=== PATIENT | male | born 1990 | race African-American/Black ===

== ENCOUNTER 2016-08-22 12:21 | Outpatient (CLI) ==
[2016-03-18 22:32] VITALS: BMI 36.6
[2016-08-22 12:52] LABS: FLU INTERNAL QC INTERNAL QC VALID; RAPID FLU A NEGATIVE (NEGATIVE); RAPID FLU B NEGATIVE (NEGATIVE)
== END 2016-08-22 12:22 | disposition home or self-care (01) ==
LOC: LAB 12:21
PROVIDERS: ATTEND Nurse Practitioner Family
DX: J02.9 Acute pharyngitis, unspecified (principal); R52 Pain, unspecified; R13.10 Dysphagia, unspecified
CPT/HCPCS: 87651; 87804; 87880

== ENCOUNTER 2016-09-14 22:56 | Emergency (ER) ==
[2016-09-14 23:02] VITALS: TEMP 97.5; BMI 35.9
[2016-09-14] MEDS ORDERED: DECADRON 4 MG/ML SDV IM STA (23:18)
--- NOTE | 2016-09-14 23:22 | ED.PDOC ---
General ED Provider: Dr. SULTANA HILTON Chief Complaint: Allergic Reaction Stated Complaint: Itching all over the body, rash. Time Seen by Physician: 23:19 Mode of Arrival: Walk-In Information Source: Patient Primary Care Provider: MECHELLE BALL Nursing and Triage Documentation Reviewed and Agree: Yes Skin Complaint Exam - Skin Rash/Itching Complaint/Exam Symptoms Are: Still present Initial Severity: Mild Current Severity: Mild Potential Exposures: Reports: Unknown Aggravating: Reports: None Alleviating: Reports: None Associated Signs and Symptoms: Denies: Difficulty breathing, Fever, Chills Skin Findings: Present: Urticaria Differential Diagnoses: Allergic Reaction, Contact Dermatitis Review of Systems - Review Of Systems Constitutional: Reports: No symptoms Eyes: Reports: No symptoms Ears, Nose, Mouth, Throat: Reports: No symptoms Respiratory: Reports: No symptoms Cardiac: Reports: No symptoms GI: Reports: No symptoms : Reports: No symptoms Musculoskeletal: Reports: No symptoms Skin: Reports: No symptoms Neurological: Reports: No symptoms Endocrine: Reports: No symptoms Hematologic/Lymphatic: Reports: No symptoms All Other Systems: Reviewed and Negative Past Medical History - Past Medical History Previously Healthy: Yes Endocrine: Reports: None Cardiovascular: Reports: None Respiratory: Reports: None Hematological: Reports: None Gastrointestinal: Reports: None Genitourinary: Reports: None Neuro/Psych: Reports: Other (Headaches ) Musculoskeletal: Reports: Back Pain (siatic in the past ) Cancer: Reports: None - Surgical History General Surgical History: Reports: Unknown - Family History Family History: Reports: Unknown - Social History Smoking Status: Current every day smoker, Light tobacco smoker Smoking Cessation Counseling Time: > 3 min - 10 min Hx Substance Use: No Alcohol Screening: Occasionally - Immunizations Tetanus Shot up to Date: Yes Physical Exam - Physical Exam Appearance: Well-appearing, No pain distress, Well-nourished Eyes: LUIS CARLOS, EOMI, Conjunctiva clear ENT: Ears normal, Nose normal, Oropharynx normal Respiratory: Airway patent, Breath sounds clear, Breath sounds equal, Respirations nonlabored Cardiovascular: RRR, Pulses normal, No rub, No murmur GI/: Soft, Nontender, No masses, Bowel sounds normal, No Organomegaly Musculoskeletal: Normal strength, ROM intact, No edema, No calf tenderness Skin: Warm, Dry, Normal color Neurological: Sensation intact, Motor intact, Reflexes intact, Cranial nerves intact, Alert, Oriented Psychiatric: Affect appropriate, Mood appropriate Critical Care Note - Critical Care Note Total Time (mins): 0 Course - Course Orders, Labs, Meds: Orders Category Date Time Status Dexamethasone 4 mg/ml Inj [Decadron 4 mg/ml Sdv] MEDS 09/14/16 23:18 Stat 4 mg IM ONCE STA Vital Signs: Temp Pulse Resp BP Pulse Ox 09/14/16 22:58 97.5 F L 93 H 20 150/95 H 97 Departure - Departure Time of Disposition: 23:21 Disposition: HOME SELF-CARE Discharge Problem: Contact dermatitis Qualifiers: Contact dermatitis type: allergic Contact dermatitis trigger: unspecified trigger Qualifier Code: (L23.9) Allergic contact dermatitis, unspecified cause Instructions: Contact Dermatitis (ED) Condition: Stable Pt referred to PMD for follow-up: No Additional Instructions: KEEP CHECKING BLOOD PRESSURE skin hygiene if not better come back Prescriptions: Diphenhydramine HCl [Benadryl] 25 mg PO Q6H #14 capsule Prednisone 10 mg PO BIDWM #14 tablet Allergies/Adverse Reactions: Allergies No Known Allergies Allergy (Verified 03/18/16 22:32) Home Medications: Ambulatory Orders Diphenhydramine HCl [Benadryl] 25 mg PO Q6H #14 capsule 09/14/16 Prednisone 10 mg PO BIDWM #14 tablet 09/14/16 Disposition Discussed With: Patient
[2016-09-14 23:48] VITALS: BP 152/104
== END 2016-09-14 23:48 | disposition home or self-care (01) ==
LOC: ED 22:56
DX: L23.9 Allergic contact dermatitis, unspecified cause (principal); F17.210 Nicotine dependence, cigarettes, uncomplicated
CPT/HCPCS: 96372; 99283

== ENCOUNTER 2017-04-26 10:57 | Emergency (ER) ==
[2017-04-26 11:01] VITALS: BP 143/89; TEMP 97.1; BMI 36.6
--- NOTE | 2017-04-26 11:15 | ED.PDOC ---
General ED Provider: Dr. HAMIDA MARTÍNEZ JR Chief Complaint: Abdominal Pain Stated Complaint: 2 days ago was vomiting, now has epigastric abdominal pain and gas and watery diarrhea [ End ]97.1 101 18 97% 143/89 510 Time Seen by Physician: 11:08 Mode of Arrival: Walk-In Information Source: Patient Exam Limitations: No limitations [facility] T[facility] Documentation Reviewed and Agree: No Reviewed sepsis parameters & appropriate labs ordered?: No System Inflammatory Response Syndrome: Not Applicable Sepsis Protocol: For patient's 13 years and over: Temp is 96.8 and below OR 101 and greater Pulse >90 BPM Resp >20/minute Acutely Altered Mental Status Are patient's symptoms suggestive of a new infection, such as: -Pneumonia -Skin, Soft Tissue -Endocarditis -UTI -Bone, Joint Infection -Implantable Device -Acute Abdominal Infection -Wound Infection -Meningitis -Blood Stream Catheter Infection -Unknown System Inflammatory Response Syndrome: Not Applicable Review of Systems - Review Of Systems Constitutional: Reports: No symptoms Eyes: Reports: No symptoms Ears, Nose, Mouth, Throat: Reports: No symptoms Respiratory: Reports: No symptoms Cardiac: Reports: No symptoms GI: Reports: Abdominal pain, Diarrhea (3 days), Nausea, Vomiting (one day-first day) : Reports: No symptoms Musculoskeletal: Reports: No symptoms Skin: Reports: No symptoms Neurological: Reports: No symptoms Endocrine: Reports: No symptoms Hematologic/Lymphatic: Reports: No symptoms All Other Systems: Other Past Medical History - Past Medical History Previously Healthy: Yes Endocrine: Reports: None Cardiovascular: Reports: None Respiratory: Reports: None Hematological: Reports: None Gastrointestinal: Reports: None Genitourinary: Reports: None Neuro/Psych: Reports: Other (Headaches ) Musculoskeletal: Reports: Back Pain (siatic in the past ) Cancer: Reports: None - Surgical History General Surgical History: Reports: Unknown - Family History Family History: Reports: Unknown - Social History Smoking Status: Current every day smoker, Light tobacco smoker Hx Substance Use: No Alcohol Screening: Occasionally Physical Exam - Physical Exam Appearance: Well-appearing Ill-appearing: Mild Pain Distress: Mild Eyes: LUIS CARLOS, EOMI, Conjunctiva clear ENT: Ears normal, Nose normal, Oropharynx normal Neck: Supple Respiratory: Airway patent, Breath sounds clear, Breath sounds equal, Respirations nonlabored Cardiovascular: RRR, Pulses normal, No rub, No murmur GI/: Soft, Nontender, No masses, Bowel sounds normal, No Organomegaly, Tender (infraumbilical lesion) Musculoskeletal: Normal strength, ROM intact, No edema, No calf tenderness Skin: Warm, Dry, Normal color (infraumbilcal abscess) Neurological: Sensation intact, Motor intact, Reflexes intact, Cranial nerves intact, Alert, Oriented Psychiatric: Affect appropriate, Mood appropriate Procedures - Incision and Drainage Site: infraumbilical Instrument Used: Needle, 11 Blade I & D Procedure: Yes: Hibiclens Prep Lidocaine Used: Yes Type of Drainage: Present: Pus, Blood Irrigated: No Critical Care Note - Critical Care Note Total Time (mins): 0 Course - Course Orders, Labs, Meds: Orders Category Date Time Status Lidocaine HCl/Pf [Lidocaine HCl 1% Sdv] MEDS 04/26/17 11:31 Discontinued 5 ml SUBCUT ONCE STA Medications Discontinued Medications Generic Name Dose Route Start Last Admin Trade Name Freq PRN Reason Stop Dose Admin Lidocaine HCl 5 ml 04/26/17 11:31 Lidocaine Hcl 1% Sdv SUBCUT 04/26/17 11:32 ONCE STA Vital Signs: Temp Pulse Resp BP Pulse Ox 04/26/17 10:57 97.1 F L 101 H 18 143/89 H 97 Departure - Departure Time of Disposition: 11:45 Disposition: HOME SELF-CARE Discharge Problem: Abscess, Gastroenteritis Instructions: Gastroenteritis (ED), Abscess (ED) Condition: Good Pt referred to PMD for follow-up: Yes Additional Instructions: peptobismol or kaopectate for diarrhea (up to 8 times a day) may use immodium or lomotil if no fever abscess bandage should be changed twice today and then daily until no drainage may use warm soaks on abscess return if nausea and diarrhea not resolved return if abscess larger follow up with PMD call today for appointment Prescriptions: Diphenoxylate HCl/Atropine [Lomotil 2.5-0.025 mg Tablet] 1 each PO QID PRN #20 tablet PRN Reason: Diarrhea Allergies/Adverse Reactions: Allergies No Known Allergies Allergy (Verified 04/26/17 11:01) Home Medications: Ambulatory Orders Diphenoxylate HCl/Atropine [Lomotil 2.5-0.025 mg Tablet] 1 each PO QID PRN #20 tablet 04/26/17
[2017-04-26] MEDS ORDERED: LIDOCAINE HCL 1% SDV SUBCUT STA (11:31)
== END 2017-04-26 12:04 | disposition home or self-care (01) ==
LOC: ED 10:57
DX: L02.216 Cutaneous abscess of umbilicus (principal); K52.9 Noninfective gastroenteritis and colitis, unspecified; F17.210 Nicotine dependence, cigarettes, uncomplicated
CPT/HCPCS: 99282